=== PATIENT | female | born 1950 | race Caucasian/White ===

== ENCOUNTER → 2024-10-22 | Outpatient (CLI) | payer MEDICARE, SELFPAY ==
[2024-10-22 16:45] LABS: Amphetamine/Methamp Scrn,U Negative (Negative); Barbiturate Screen,Urine Negative (Negative); Benzodiazepines Screen,Urine Negative (Negative); Benzoylecgonine Screen, Ur Negative (Negative); Fentanyl Screen,Urine Negative (Negative); Opiate Screen,Urine Positive (Negative); THC Screen,Urine Negative (Negative)
== END | disposition home or self-care (01) ==
LOC: SLDO 14:55
PROVIDERS: Referring Provider Registered Nurse; Visit Provider Registered Nurse
DX: G89.4 Chronic pain syndrome (principal); Z79.891 Long term (current) use of opiate analgesic
CPT/HCPCS: 80307

== ENCOUNTER → 2025-08-03 | Outpatient (CLI) | payer MEDICARE, BC, SELFPAY ==
--- NOTE | 2025-08-03 16:57 | XR_ITS ---
Shoulder bilateral, 6 views Technique: Shoulder AP internal rotation, AP external rotation, Y view each shoulder total 6 views Exam date and time : August 03, 2025, 1722 hours INDICATIONS: Bilateral shoulder pain beginning 1 year ago. FINDINGS: Severe osteopenia Bilateral severe osteoarthritis glenohumeral joints No shoulder fractures or dislocation IMPRESSION: Severe bilateral osteoarthritis glenohumeral joints
== END | disposition home or self-care (01) ==
PROVIDERS: PCP Registered Nurse; Referring Provider Registered Nurse; Visit Provider Registered Nurse
DX: M19.012 Primary osteoarthritis, left shoulder (principal); M19.011 Primary osteoarthritis, right shoulder
CPT/HCPCS: 73030